=== PATIENT | male | born 1985 | race American Indian/Alaskan Native ===

== ENCOUNTER 2022-06-22 02:24 | Emergency (ER) | payer SELFPAY ==
[2022-06-22] MEDS ORDERED: SODIUM CHLORIDE 0.9% 500 ML 500 ML IV ONE (12:00)
--- NOTE | 2022-06-22 12:16 | Emergency Department Report ---
ED General Adult HPI - General Chief complaint: High BP Stated complaint: BLOOD PRESSURE CONCERNS Time Seen by Provider: 06/22/22 11:39 Source: patient Mode of arrival: Ambulatory Limitations: No Limitations - History of Present Illness Initial comments: Patient is a 36-year-old male recently seen for his routine annual physical by his primary care doctor and noted to have hypertension, diabetes (hemoglobin A1c was 8) and thrombocytopenia. He was placed on losartan/HCT Z, metformin, and given a referral to hematology. Last night he took a shower and after he got out of the shower he developed a mild headache, felt dizzy and had some blurred vision, so his who is a nurse took his blood pressure and it was elevated. She gave him an extra dose of his losartan HCTZ and when he got to the emergency department his blood pressure was 177/119. Patient denies any chest pain shortness of breath or palpitations. No paresthesias or weakness of the extremity. There was no change in his mental status. Blood pressure at the time of my initial eval was 185/102 and he still symptomatic. - Related Data Previous Rx's Medication Instructions Recorded Last Taken Type Losartan/Hydrochlorothiazide 1 each PO BID #30 tab 06/22/22 Unknown Rx [Losartan-Hctz 100-25 mg Tab] Potassium Chloride [K-Dur] 10 meq PO BID #60 tab 06/22/22 Unknown Rx carvediloL [Coreg] 6.25 mg PO DAILY #30 tablet 06/22/22 Unknown Rx Allergies Allergy/AdvReac Type Severity Reaction Status Date / Time No Known Allergies Allergy Unverified 06/22/22 03:17 ED Review of Systems ROS: Stated complaint: BLOOD PRESSURE CONCERNS Other details as noted in HPI Comment: All other systems reviewed and negative Constitutional: denies: chills, fever Eyes: denies: eye pain, eye discharge, vision change ENT: denies: ear pain, throat pain Respiratory: denies: cough, shortness of breath, wheezing Cardiovascular: denies: chest pain, palpitations Endocrine: no symptoms reported Gastrointestinal: denies: abdominal pain, nausea, diarrhea Genitourinary: denies: urgency, dysuria Musculoskeletal: denies: back pain, joint swelling, arthralgia Skin: denies: rash, lesions Neurological: as per HPI, headache. denies: weakness, numbness, paresthesias, confusion, abnormal gait, vertigo Psychiatric: denies: anxiety, depression Hematological/Lymphatic: denies: easy bleeding, easy bruising ED Past Medical Hx - Past Medical History Hx Hypertension: Yes (Diagnosed 2 weeks ago) Hx Diabetes: Yes (Diagnosed 2 weeks ago) Additional medical history: Thrombocytopenia diagnosed 2 weeks ago at routine physical - Family History Family history: diabetes, hypertension - Social History Smoking Status: Never Smoker Substance Use Type: None Other Social History: is here with patient and appears supportive. She is a nurse. - Medications Home Medications: Home Medications Medication Instructions Recorded Confirmed Last Taken Type Losartan/Hydrochlorothiazide 1 each PO BID #30 tab 06/22/22 Unknown Rx [Losartan-Hctz 100-25 mg Tab] Potassium Chloride [K-Dur] 10 meq PO BID #60 tab 06/22/22 Unknown Rx carvediloL [Coreg] 6.25 mg PO DAILY #30 tablet 06/22/22 Unknown Rx ED Physical Exam - General Limitations: No Limitations General appearance: alert, in no apparent distress - Head Head exam: Present: atraumatic, normocephalic - Eye Eye exam: Present: normal appearance - ENT ENT exam: Present: mucous membranes moist - Neck Neck exam: Present: normal inspection - Respiratory Respiratory exam: Present: normal lung sounds bilaterally. Absent: respiratory distress, wheezes, rales, rhonchi - Cardiovascular Cardiovascular Exam: Present: regular rate, normal rhythm. Absent: systolic murmur, diastolic murmur, rubs, gallop - GI/Abdominal GI/Abdominal exam: Present: soft, normal bowel sounds. Absent: distended, tenderness - Rectal Rectal exam: Present: deferred - Extremities Exam Extremities exam: Present: normal inspection - Back Exam Back exam: Present: normal inspection - Neurological Exam Neurological exam: Present: alert, oriented X3, CN II-XII intact, normal gait, motor sensory deficit, reflexes normal. Absent: altered - Psychiatric Psychiatric exam: Present: normal affect, normal mood - Skin Skin exam: Present: warm, dry, intact, normal color. Absent: rash ED Course Vital Signs 06/22/22 06/22/22 06/22/22 03:14 13:14 13:46 Temperature 98.5 F Pulse Rate 86 77 Respiratory 18 Rate Blood Pressure 165/105 Blood Pressure 177/119 185/102 [Right] O2 Sat by Pulse 100 Oximetry 06/22/22 06/22/22 20:31 20:32 Temperature Pulse Rate Respiratory Rate Blood Pressure 161/96 Blood Pressure 159/100 [Right] O2 Sat by Pulse Oximetry - Reevaluation(s) Reevaluation #1: 06/22/22 17:28 Patient's symptoms resolved after amlodipine and he states "I feel a lot better." BP 161/100. Temp 98.6, hr 82, SaO2 100%, Resp 16. 06/22/22 20:27 ED Medical Decision Making - Lab Data Result diagrams: 06/22/22 13:34 06/22/22 17:40 - Radiology Data Radiology results: report reviewed, image reviewed ents [address] [address] XRay Report Signed Patient: SHABNAM EDEN MR#: [id number] : 1985 Acct:[id number] Age/Sex: 36 / M ADM Date: 06/22/22 Loc: ED Attending Dr: Ordering Physician: JOANN ARELLANO Date of Service: 06/22/22 Procedure(s): XR chest routine 2V Accession Number(s): [id number] cc: JOANN ARELLANO Fluoro Time In Minutes: CHEST 2 VIEWS INDICATION / CLINICAL INFORMATION: Weakness. COMPARISON: None available. FINDINGS: SUPPORT DEVICES: None. HEART / MEDIASTINUM: No significant abnormality. LUNGS / PLEURA: No significant pulmonary or pleural abnormality. No pneum othorax. ADDITIONAL FINDINGS: No significant additional findings. IMPRESSION: 1. No acute findings. Signer Name: Tenzin Berrios MD Signed: 06/22/2022 12:23 PM Workstation Name: [id number] Transcribed By: [place] Dictated By: Tenzin Berrios MD Electronically Authenticated By: Tenzin Berrios MD Signed Date/Time: 06/22/22 1223 DD/ 1223 TD/TT: [address] [address] Cat Scan Report Signed Patient: SHABNAM EDEN MR#: [id number] : 1985 Acct:[id number] Age/Sex: 36 / M ADM Date: 06/22/22 Loc: ED Attending Dr: Ordering Physician: OJANN ARELLANO Date of Service: 06/22/22 Procedure(s): CT head/brain wo con Accession Number(s): [id number] cc: JOANN ARELLANO CT HEAD WITHOUT CONTRAST INDICATION : Weakness. TECHNIQUE: Axial imaging performed from the skull apex through the skull base without the use of contrast. Sagittal and coronal reformatted images. All CT scans at this location are performed using CT dose reduction for ALARA by means of automated exposure control. COMPARISON: None FINDINGS: Parenchyma: There is mild hypoattenuation in the periventricular white matter consistent with chronic microangiopathy which appears advanced for this person's age. There is less distinct hypoattenuation in the posterior left occipital lobe which does not appear to involve the cortex. This also suggests chronic microangiopathy. Less likely subacute ischemia could be considered. The remaining brain parenchyma is unremarkable. Ventricles: Ventricles are normal in size and appear symmetric. Bones: No acute osseous abnormality. Sinuses: Sinuses and mastoid air cells are clear. Soft tissues: Soft tissues including the orbits appear normal. IMPRESSION: Moderate chronic appearing white matter changes as described which appear advanced for this person's age. There is a questionable area of diminished attenuation in the left occipital lobe which is probably chronic. If acute neurological symptoms are present subacute ischemia could be considered. No evidence for hemorrhage, mass or mass effect. Correlate with the patient's clinical presentation. Signer Name: Conor Payne Jr, MD Signed: 06/22/2022 3:52 PM Workstation Name: [id number] Transcribed By: TTR Dictated By: CONOR PAYNE JR, MD Electronically Authenticated By: CONOR PAYNE JR, MD Signed Date/Time: 06/22/22 1552 DD/ 1549 TD/TT: Print - Medical Decision Making Patient is a 36-year-old male with recent onset of hypertension and diabetes (as well as thrombocytopenia) diagnosed 2 weeks ago at his annual physical with his primary care doctor. He was placed on losartan/hydrochlorothiazide 100/25 and metformin. He was doing well per his who is a nurse until last night when he got in the shower and started feeling dizzy and had blurred vision and a headache. His took his blood pressure and it was 177/119 so she gave him a dose of his losartan hydrochlorothiazide and brought him to the emergency department. At my initial evaluation he continued to have the dizziness and blurred vision and his blood pressure was down to 185/102. He was given amlodipine and states his symptoms improved significantly at that point. He did not have any chest pain shortness of breath or palpitations. Work-up: EKG x3 revealed sinus rhythm but T wave abnormalities and borderline ST elevation in the lateral leads. CT head revealed Moderate chronic appearing white matter changes as described which appear advanced for this person's age. There is a questionable area of diminished attenuation in the left occipital lobe which is probably chronic. If acute neurological symptoms are present subacute ischemia could be considered. No evidence for hemorrhage, mass or mass effect. Correlate with the patient's clinical presentation. His blood sugar was found to be 263 and he was given fluids. Serial troponins normal. Case was discussed with the hospitalist Dr. Vega, including CT report, platelets, EKG. He does not feel like the patient needs to be admitted and will come down and evaluate the patient here in the emergency department. 20:31: Dr. Vega came down to evaluate the patient. He was given copies of EKGs and was aware of the CT report. He feels that this can be handled outpatient with increasing his losartan HCT to twice daily, adding potassium 10 mg twice daily as well as Coreg 6.25 daily. He can follow-up with his primary care doctor outpatient per Dr. Vega. - Differential Diagnosis Headache. Hypertension. Intracranial abnormality. EKG changes. Critical care attestation.: If time is entered above; I have spent that time in minutes in the direct care of this critically ill patient, excluding procedure time. ED Disposition Clinical Impression: Hypertension Disposition: 01 HOME / SELF CARE / HOMELESS Is pt being admited?: No Condition: Stable Instructions: Preventing Hypertension, Managing Your Hypertension, Hypertension, Adult, Hypertension (ED) Additional Instructions: Blood pressure medications as prescribed. (Increase her losartan to twice daily) monitor your blood pressure morning and evening at least 1 hour after you take your meds. follow-up with your primary care doctor this week. Return if any worsening symptoms. Prescriptions: carvediloL [Coreg] 6.25 mg PO DAILY #30 tablet Potassium Chloride [K-Dur] 10 meq PO BID #60 tab Losartan/Hydrochlorothiazide [Losartan-Hctz 100-25 mg Tab] 1 each PO BID #30 tab Referrals: PRIMARY CARE, [Primary Care Provider] - 3-5 Days Forms: Work/School Release Form(ED) Time of Disposition: 20:40
[2022-06-22] MEDS ORDERED: amLODIPine 5 MG TAB PO ONE (12:21)
--- NOTE | 2022-06-22 12:27 | XRay Report ---
CHEST 2 VIEWS INDICATION / CLINICAL INFORMATION: Weakness. COMPARISON: None available. FINDINGS: SUPPORT DEVICES: None. HEART / MEDIASTINUM: No significant abnormality. LUNGS / PLEURA: No significant pulmonary or pleural abnormality. No pneumothorax. ADDITIONAL FINDINGS: No significant additional findings. IMPRESSION: 1. No acute findings. Signer Name: Tenzin Berrios MD Signed: 06/22/2022 12:23 PM Workstation Name: [id number]
[2022-06-22 13:49] LABS: Hemoglobin 13.2 gm/dl (11.8-15.2); Mean Corpuscular HGB Conc 35 % (32-34); Red Blood Count 5.78 M/mm3 (3.65-5.03)
[2022-06-22 13:54] LABS: Mean Corpuscular Volume 66 fl (84-94); Red Cell Distribution Width 25.3 % (13.2-15.2)
[2022-06-22 14:18] LABS: Alanine Aminotransferase 25 units/L (7-56); Albumin 4.4 g/dL (3.9-5); Blood Urea Nitrogen 8 mg/dL (9-20); Calcium 9.5 mg/dL (8.4-10.2); Hemolysis Index 12
[2022-06-22 14:28] LABS: BUN/Creatinine Ratio 13
[2022-06-22] MEDS ORDERED: INSULIN REGULAR, HUMAN 100 UNITS/1 ML SUB-Q ONE (14:42)
[2022-06-22 15:46] LABS: Bilirubin,Urine NEG (Negative); Blood,Urine NEG (Negative); Color,Urine Yellow (Yellow)
[2022-06-22 15:47] LABS: Mucus,Urine FEW /HPF; RBC,Urine < 1.0 /HPF (0.0-6.0); WBC,Urine < 1.0 /HPF (0.0-6.0)
--- NOTE | 2022-06-22 15:57 | Cat Scan Report ---
CT HEAD WITHOUT CONTRAST INDICATION : Weakness. TECHNIQUE: Axial imaging performed from the skull apex through the skull base without the use of con trast. Sagittal and coronal reformatted images. All CT scans at this location are performed using C T dose reduction for ALARA by means of automated exposure control. COMPARISON: None FINDINGS: Parenchyma: There is mild hypoattenuation in the periventricular white matter consistent with chroni c microangiopathy which appears advanced for this person's age. There is less distinct hypoattenuatio n in the posterior left occipital lobe which does not appear to involve the cortex. This also suggest s chronic microangiopathy. Less likely subacute ischemia could be considered. The remaining brain par enchyma is unremarkable. Ventricles: Ventricles are normal in size and appear symmetric. Bones: No acute osseous abnormality. Sinuses: Sinuses and mastoid air cells are clear. Soft tissues: Soft tissues including the orbits appear normal. IMPRESSION: Moderate chronic appearing white matter changes as described which appear advanced for th is person's age. There is a questionable area of diminished attenuation in the left occipital lobe wh ich is probably chronic. If acute neurological symptoms are present subacute ischemia could be consid ered. No evidence for hemorrhage, mass or mass effect. Correlate with the patient's clinical presenta tion. Signer Name: Conor Payne Jr, MD Signed: 06/22/2022 3:52 PM Workstation Name: [id number]
[2022-06-22 17:12] LABS: Urobilinogen,Urine < 2.0 mg/dL (<2.0)
[2022-06-22 18:16] LABS: Eosinophils % (Manual) 0 % (0.0-4.3); Total Cells Counted 100
[2022-06-22 18:17] LABS: Anisocytosis Few; Basophils % (Manual) 0 % (0.0-1.8); Hypochromasia 1+; Platelet Count 69 K/mm3 (140-440); Platelet Estimate Consistent w Auto
[2022-06-22 21:23] VITALS: BP 161/96
--- NOTE | 2022-06-23 11:47 | Electrocardiograph Report ---
[facility] Test Date: 2022-06-22 Test Time: 12:30:18 Pat Name: SHABNAM EDEN Department: Room: Gender: M [employer] Operator: SARAN : 1985 Requested By: IONA MCKEON Order Number: [id number] Reading MD: Torres Castano Measurements Intervals [place] Rate: 79 P: 42 MS: 127 QRS: 53 QRSD: 76 T: -27 QT: 358 QTc: 410 Interpretive Statements Sinus rhythm T wave abnormality, consider anterior ischemia. Septal myocardial infarction of undetermined age. Electronically Signed On 06-23-2022 11:46:40 EDT by Torres Castano
--- NOTE | 2022-06-23 11:48 | Electrocardiograph Report ---
[facility] Test Date: 2022-06-22 Test Time: 14:55:50 Pat Name: SHABNAM EDEN Department: Room: Gender: M Material Inspector: SARAN : 1985 Requested By: IONA MCKEON Order Number: [id number] Reading MD: Torres Castano Measurements Intervals [place] Rate: 73 P: 39 GA: 129 QRS: 48 QRSD: 76 T: -32 QT: 359 QTc: 396 Interpretive Statements Sinus rhythm Abnormal T, consider ischemia, diffuse leads Borderline ST elevation, lateral leads Septal myocardial infarction of undetermined age Compared to ECG 06/22/2022 12:30:18 Possible ischemia now present T-wave abnormality still present ST (T wave) deviation still present Electronically Signed On 06-23-2022 11:47:47 EDT by Torres Castano
== END 2022-06-22 21:24 | disposition home or self-care (01) ==
LOC: ED 02:24
DX: I10 Essential (primary) hypertension (principal); E11.9 Type 2 diabetes mellitus without complications
CPT/HCPCS: 36415; 70450; 71046; 80053; 81001; 82947; 84484; 85007; 85025; 93005; 96360; 96361; 99284; J7040